=== PATIENT | male | born 1940 | race Caucasian/White ===

== ENCOUNTER 2021-09-11 10:39 | Emergency (ER) | payer OTHER, BC ==
[2021-09-11] MEDS ORDERED: ACETAMINOPHEN 325 MG TABLET (FP) PO ONE (11:00)
[2021-09-11 11:03] VITALS: BP 114/61; PULSE 72; TEMP 97.8; BMI 26.6
[2021-09-11] MEDS ORDERED: ACETAMINOPHEN 325 MG TABLET (FP) ONE (11:04)
== END 2021-09-11 11:08 | disposition home or self-care (01) ==
LOC: FER 10:39
DX: M79.651 Pain in right thigh (principal)
CPT/HCPCS: 99283-25